=== PATIENT | male | born 1975 | race African-American/Black ===

== ENCOUNTER 2021-12-20 09:45 | Emergency (ER) | payer MEDICAID ==
[~2021-12-20] VITALS: Ht 172.7 cm; Wt 80.0 kg
[~2021-12-20 09:45] MED LIST: HYDR-4001 MT
[2021-12-20 09:59] VITALS: BP 150/79
[2021-12-20] MEDS ORDERED: TETANUS, DIPHTHERIA, PERTUSSIS VAC/PF 0.5ML (>10YR OLD) IM ONE (10:30)
[2021-12-20] MEDS ORDERED: LIDOCAINE HCL/EPINEPHRINE 1%-EPI 1:100,000 20 ML VIAL INFIL ONE (10:30)
[2021-12-20] MEDS ORDERED: BACITRACIN ZINC OINT UDPKT TOP ONE (10:30)
[2021-12-20] MEDS ORDERED: LIDOCAINE HCL/EPINEPHRINE 1%-EPI 1:100,000 10 ML VIAL INFIL NR (10:45)
== END 2021-12-20 12:00 | disposition home or self-care (01) ==
LOC: ER 09:45
DX: S61.411A Laceration without foreign body of right hand, initial encounter (principal); Z88.3 Allergy status to other anti-infective agents; X99.1XXA Assault by knife, initial encounter; Y92.89 Other specified places as the place of occurrence of the external cause
CPT/HCPCS: 12001; 90471; 90715; 99283; J3490